=== PATIENT | female | born 1990 | race Caucasian/White ===

== ENCOUNTER 2019-09-30 21:00 | Emergency (ER) | payer OTHER ==
[~2019-09-30] VITALS: Ht 165.1 cm; Wt 74.8 kg
[2019-09-30 21:53] VITALS: BP 107/68
--- NOTE | 2019-10-01 00:30 | NUR ---
PATIENT AMBULATED TO CHAIR A.
--- NOTE | 2019-10-01 00:30 | NUR ---
29 Y/O FEMALE BIB SELF FOR ANXIETY AND COUGH X1 DAY. PATIENT STATES THAT SHE HAS CHEST DISCOMFORT WHEN SHE COUGHS. CLEAR BREATH SOUNDS HEARD THROUGHOUT. PAIN IS A 5/10. DRY COUGH NOTED. ERMD MADE AWARE OF STATUS. PMH:ASTHMA; BRONCHITIS RX:ALBUTEROL ALLERGIES: IODINE
--- NOTE | 2019-10-01 02:00 | NUR ---
SEEN AND EXAMINED BY MYNOR WITH ORDERS AND CARRIED OUT.
[2019-10-01] MEDS ORDERED: KETOROLAC 60 MG/2 ML VIAL IM ONE (03:15)
[2019-10-01 03:37] VITALS: BP 118/65
--- NOTE | 2019-10-01 03:37 | NUR ---
Patient discharged with v/s stable. She states pain relieved and tollerable at 2/10. Written and verbal after care instructions given and explained. Patient alert, oriented and verbalized understanding of instructions. Ambulatory with steady gait. All questions addressed prior to discharge. ID band removed. Patient advised to follow up with PMD and when to return to ER. Rx of Naprosyn given. Patient educated on indication of medication including possible reaction and side effects. Opportunity to ask questions provided and answered.
== END 2019-10-01 03:37 | disposition home or self-care (01) ==
LOC: MED 21:00
DX: R07.89 Other chest pain (principal); J06.9 Acute upper respiratory infection, unspecified; F41.9 Anxiety disorder, unspecified; E78.00 Pure hypercholesterolemia, unspecified; Z88.8 Allergy status to other drugs, medicaments and biological substances
CPT/HCPCS: 93005; 96372; 99283; J1885